=== PATIENT | female | born 1975 | race Caucasian/White ===

== ENCOUNTER 2016-12-04 11:51 | Observation (INO) | payer BC ==
[~2016-12-04] VITALS: Ht 157.5 cm; Wt 105.0 kg
[2016-12-04 11:52] VITALS: BP 181/116; PULSE 82; RESP 20; TEMP 98.5; O2SAT 98
[2016-12-04 12:23] LABS: AUTOMATED NEUTROPHIL # 4.6 TH/MM3 (1.8-7.7); BASOPHIL % 0.5 % (0.0-2.0); EOSINOPHIL # 0.1 TH/MM3 (0-0.4); EOSINOPHIL % 1.8 % (0.0-4.0); HEMO FLAGS DIFF FINAL; LYMPH % 32.3 % (9.0-44.0); LYMPHOCYTE # 2.4 TH/MM3 (1.0-4.8); MEAN CORPUSCULAR HEMOGLOBIN 28.1 PG (27.0-34.0); MEAN CORPUSCULAR HGB CONC 32.3 % (32.0-36.0); MONO % 4.9 % (0.0-8.0); NEUT % 60.5 % (16.0-70.0); PLATELET COUNT 316 TH/MM3 (150-450); RED BLOOD COUNT 4.71 MIL/MM3 (4.00-5.30); RED CELL DISTRIBUTION WIDTH 15.8 % (11.6-17.2); WHITE BLOOD COUNT 7.6 TH/MM3 (4.0-11.0)
[2016-12-04 12:32] LABS: PROTHROMBIN TIME - PATIENT 11.4 SEC (9.8-11.6)
[2016-12-04 12:37] LABS: ANION GAP 9 MEQ/L (5-15); BICARBONATE 25.3 MEQ/L (21.0-32.0); BLOOD UREA NITROGEN 10 MG/DL (7-18); CHLORIDE 103 MEQ/L (98-107); GLOMERULAR FILTRATION RATE 78 ML/MIN (>89); POTASSIUM 3.5 MEQ/L (3.5-5.1); SODIUM (NA) 137 MEQ/L (136-145)
[2016-12-04 12:47] LABS: CREATINE KINASE 80 U/L (26-192)
--- NOTE | 2016-12-04 12:52 | PD ---
HPI Chief Complaint: Chest Pain Time Seen by Provider: 12:49 Travel History International Travel<30 days: No Contact w/Intl Traveler<30days: No Traveled to known affect area: No History of Present Illness HPI 41-year-old female that presents to the ED for evaluation of chest pain. Per patient she's had this chest pain since yesterday night. Per patient she was watching TV when the pain started. Per patient he comes and goes. Sharp and calluses diaphoresis. She gets some shortness of breath with it. She states that she's had some pain in the chest before and they attributed this to her psoriasis arthritis. Per patient this feels different in that is more severe. She states that about a week ago she was diagnosed with bronchitis. She denies any cough currently. She states that she is taking antibiotics for this. She denies any injury to the chest. Per patient her pain is 6 out of 10. Comes and goes. Denies any fevers chills or sweats. No abdominal pain. She does state that she feels nauseated. She does have a strong family history of heart disease. She states that she does not smoke which she has a history of hypertension. She has had a stress test about 5-10 years ago. PFSH Past Medical History Autoimmune Disease: Yes (psoriasis on immunosuppresants) Hypertension: Yes ?: Not LMP: 12/03/16 Social History Alcohol Use: No Tobacco Use: No Substance Use: No Allergies-Medications (Allergen,Severity, Reaction): Coded Allergies: Penicillins (Verified Allergy, Unknown, 12/04/16) Reported Meds & Prescriptions Reported Meds & Active Scripts Active Reported Doxycycline 40 Mg Cap 40 Mg PO BID Duloxetine DR (Duloxetine HCl) 20 Mg Capdr 20 Mg PO BID Ambien (Zolpidem Tartrate) 10 Mg Tab 10 Mg PO HS PRN Prozac (Fluoxetine HCl) 20 Mg Cap 20 Mg PO DAILY Sulfazine (Sulfasalazine) 500 Mg Tab 500 Mg PO HS Gabapentin 600 Mg Tab 600 Mg PO HS Amlodipine (Amlodipine Besylate) 5 Mg Tab 5 Mg PO DAILY Review of Systems Except as stated in HPI: all other systems reviewed are Neg Physical Exam Narrative GENERAL: SKIN: Warm and dry. HEAD: Atraumatic. Normocephalic. EYES: Pupils equal and round. No scleral icterus. No injection or drainage. ENT: No nasal bleeding or discharge. Mucous membranes pink and moist. Tongue is midline. No uvula deviation. NECK: Trachea midline. No JVD. CARDIOVASCULAR: Regular rate and rhythm. No murmurs, S3, S4. Chest pain is not reproducible with touch. RESPIRATORY: No accessory muscle use. Clear to auscultation. Breath sounds equal bilaterally. GASTROINTESTINAL: Abdomen soft, non-tender, nondistended. Hepatic and splenic margins not palpable. MUSCULOSKELETAL: Extremities without clubbing, cyanosis, or edema. No obvious deformities. Full range of motion of the upper and lower extremities bilaterally. 2+ pulses bilaterally. NEUROLOGICAL: Awake and alert. No obvious cranial nerve deficits. Motor grossly within normal limits. Five out of 5 muscle strength in the arms and legs. Normal speech. PSYCHIATRIC: Appropriate mood and affect; insight and judgment normal. Data Data Last Documented VS Vital Signs Date Time Temp Pulse Resp B/P Pulse Ox O2 Delivery O2 Flow Rate FiO2 12/04/16 13:10 66 18 149/80 99 Room Air 12/04/16 11:52 98.5 Orders Electrocardiogram (12/04/16 11:56) Complete Blood Count With Diff (12/04/16 11:56) Basic Metabolic Panel (Bmp) (12/04/16 11:56) Ckmb (Isoenzyme) Profile (12/04/16 11:56) Troponin I (12/04/16 11:56) Chest, Single Ap (12/04/16 11:56) Iv Access Insert/Monitor (12/04/16 11:56) Ecg Monitoring (12/04/16 11:56) Oxygen Administration (12/04/16 11:56) Oximetry (12/04/16 11:56) Prothrombin Time / Inr (Pt) (12/04/16 11:56) Ed Urine Pregnancytest Poc (12/04/16 11:58) Lipase (12/04/16 12:34) Aspirin (Aspirin) (12/04/16 13:00) Labs Laboratory Tests Test 12/04/16 12:14 White Blood Count 7.6 TH/MM3 Red Blood Count 4.71 MIL/MM3 Hemoglobin 13.2 GM/DL Hematocrit 41.0 % Mean Corpuscular Volume 87.0 FL Mean Corpuscular Hemoglobin 28.1 PG Mean Corpuscular Hemoglobin 32.3 % Concent Red Cell Distribution Width 15.8 % Platelet Count 316 TH/MM3 Mean Platelet Volume 8.3 FL Neutrophils (%) (Auto) 60.5 % Lymphocytes (%) (Auto) 32.3 % Monocytes (%) (Auto) 4.9 % Eosinophils (%) (Auto) 1.8 % Basophils (%) (Auto) 0.5 % Neutrophils # (Auto) 4.6 TH/MM3 Lymphocytes # (Auto) 2.4 TH/MM3 Monocytes # (Auto) 0.4 TH/MM3 Eosinophils # (Auto) 0.1 TH/MM3 Basophils # (Auto) 0.0 TH/MM3 CBC Comment DIFF FINAL Differential Comment Prothrombin Time 11.4 SEC Prothromb Time International 1.0 RATIO Ratio Sodium Level 137 MEQ/L Potassium Level 3.5 MEQ/L Chloride Level 103 MEQ/L Carbon Dioxide Level 25.3 MEQ/L Anion Gap 9 MEQ/L Blood Urea Nitrogen 10 MG/DL Creatinine 0.81 MG/DL Estimat Glomerular Filtration 78 ML/MIN Rate Random Glucose 97 MG/DL Calcium Level 8.8 MG/DL Total Creatine Kinase 80 U/L Troponin I LESS THAN 0.02 NG/ML MDM Medical Decision Making Medical Screen Exam Complete: Yes Emergency Medical Condition: Yes Medical Record Reviewed: Yes Interpretation(s) CBC & BMP Diagram 12/04/16 12:14 troponin and CKMB negative EKG shows sinus rhythm with no sign of acute ischemia or arrhythmia examining attending. Last Impressions Chest X-Ray 12/04/16 1156 Signed Impressions: Service Date/Time: Sunday, December 04, 2016 12:35 - CONCLUSION: No acute disease. Elier Waters MD Differential Diagnosis Chest pain versus atypical chest pain versus ACS versus normal exam versus pneumonia versus pancreatitis Narrative Course 41-year-old female that presents to the ED for evaluation of chest pain. Patient was properly examined and was found to have signs and symptoms of unclear etiology. Definite concern for ACS is patient does have risk factors include family history hypertension. Labs and imaging were ordered. She was given aspirin here. Labs and imaging showed no sign of acute disease. Recommendation is for admission to chest pain center as patient does have risk factors include family history, hypertension. Patient agrees with this plan. Patient was admitted to the chest pain center by me. Procedures EKG Prior to Arrival: No Diagnosis Primary Impression: Chest pain in adult Admitting Information Admitting Physician Requests: Observation Dominic Jerry Dec 04, 2016 12:52
[2016-12-04] MEDS ORDERED: ASPIRIN 325 MG TAB PO ONE (13:00)
[2016-12-04 13:02] VITALS: RESP 18; O2SAT 99
[2016-12-04] MEDS ORDERED: AMBI10TA PO (13:09)
[2016-12-04] MEDS ORDERED: AMLO5TAB2 PO (13:09)
[2016-12-04] MEDS ORDERED: GABA600T PO (13:09)
[2016-12-04] MEDS ORDERED: DOXY1CAP74 PO (13:09)
[2016-12-04] MEDS ORDERED: SULF500T39 PO (13:09)
[2016-12-04] MEDS ORDERED: PROZ20CA11 PO (13:09)
[2016-12-04] MEDS ORDERED: DULO1CAP PO (13:09)
[2016-12-04 13:10] VITALS: BP 149/80; PULSE 66; RESP 18; O2SAT 99
--- NOTE | 2016-12-04 13:30 | RADRPT ---
EXAM DATE/TIME: 12/04/2016 12:35 [facility] COMPARISON: No previous studies available for comparison. INDICATIONS : Chest pain. MEDICAL HISTORY : Hypertension. SURGICAL HISTORY : Cholecystectomy. ENCOUNTER: Initial ACUITY: 1 day PAIN SCORE: 5/10 LOCATION: Left upper chest FINDINGS: A single view of the chest demonstrates the lungs to be symmetrically aerated without evidence of mas s, infiltrate or effusion. The cardiomediastinal contours are unremarkable. Osseous structures are intact. CONCLUSION: No acute disease. Elier Waetrs MD on December 04, 2016 at 13:28 Board Certified Radiologist. This report was verified electronically.
[2016-12-04] MEDS ORDERED: ACETAMINOPHEN 500 MG CPLT PO PRN (15:15)
[2016-12-04] MEDS ORDERED: ALPRAZolam 0.25 MG TAB PO PRN (15:15)
[2016-12-04] MEDS ORDERED: PANTOPRAZOLE SOD 40 MG DELAYED RELEASE TAB PO SCH (15:15)
[2016-12-04] MEDS ORDERED: SODIUM CHLORIDE 0.9% FLUSH 5 ML FLUSH IVF PRN (15:15)
[2016-12-04] MEDS ORDERED: ONDANSETRON HCL 4 MG/2 ML VIAL IV PRN (15:15)
[2016-12-04] MEDS ORDERED: ACETAMINOPHEN/HYDROcodone 325 MG/7.5 MG TAB PO PRN (15:15)
--- NOTE | 2016-12-04 15:32 | HHI.HP ---
[facility] Primary Care Physician Bianca Maravilla MD Chief Complaint Chest pain History of Present Illness This is a 41-year-old female that presents to ED via private vehicle with a complaint of left-sided chest discomfort that began about 8:00 last evening while watching television. He described as pressure. It was intermittent lasting no greater than 1 minute at a time. Occurred more than 10 times complain also shortness breath, nausea, diaphoresis. Patient also states that she is on doxycycline and has 4 more days of the medicine secondary to bilateral otitis media and bronchitis. She had a dry cough. She also had fever 6 days ago. Denies recent travel. Denies . Denies history of CAD but states her mother had a "mild heart attack at 41." Patient states she had a stress test 6 years ago and that was okay. Review of Systems General: Patient denies recent travel HEENT: Patient denies headache, sore throat, difficulty swallowing. Had bilateral ear aches. Cardiovascular: Has the chest discomfort as mentioned above. Denies sensation of heart beating rapidly or irregularly. No syncope. Complained of diaphoresis last evening. Respiratory: She has had intermittent shortness of breath. She has had a dry cough. Denies shortness of breath or inspirational chest discomfort. Denies wheezing or hemoptysis. GI: She was nauseous. Patient denies vomiting, diarrhea, abdominal pain, bloody stools. Musculoskeletal: Patient denies joint pain or edema. Denies calf pain or edema. Neurovascular: Patient denies numbness, tingling, weakness in extremities. Denies headache. Endocrine: Denies polyuria and polydipsia. Hematologic: Denies easy bruising. Skin: Denies rash or itching. Past Family Social History Allergies: Coded Allergies: Penicillins (Verified Allergy, Unknown, 12/04/16) Past Medical History Psoriatic arthritis and hypertension. Denies CAD, hyperlipidemia, and diabetes. Past Surgical History Cholecystectomy. Reported Medications Reported Meds & Active Scripts Active Reported Doxycycline 40 Mg Cap 40 Mg PO BID Duloxetine DR (Duloxetine HCl) 20 Mg Capdr 20 Mg PO BID Ambien (Zolpidem Tartrate) 10 Mg Tab 10 Mg PO HS PRN Prozac (Fluoxetine HCl) 20 Mg Cap 20 Mg PO DAILY Sulfazine (Sulfasalazine) 500 Mg Tab 500 Mg PO HS Gabapentin 600 Mg Tab 600 Mg PO HS Amlodipine (Amlodipine Besylate) 5 Mg Tab 5 Mg PO DAILY Active Ordered Medications Current Medications Medications (Trade) Dose Ordered Sig/Camelia Route Start Time Stop Time Status Last Admin (NS Flush) 2 ml UNSCH PRN IVF 12/04/16 15:15 (NS Flush) 2 ml BID IVF 12/04/16 21:00 (Tylenol) 500 mg Q4H PRN PO 12/04/16 15:15 (Farson 7.5-325 Mg) 1 tab Q4H PRN PO 12/04/16 15:15 (Zofran Inj) 4 mg Q6H PRN IV 12/04/16 15:15 (Protonix) 40 mg DAILY PO 12/04/16 15:15 12/04/16 15:12 (Aspirin) 325 mg DAILY PO 12/05/16 09:00 (Xanax) 0.25 mg Q8H PRN PO 12/04/16 15:15 Family History States that her mother had a "mild heart attack at 41." Social History Patient is a lifetime nonsmoker. Denies illicit drugs. Rarely has alcohol. Physical Exam Vital Signs Vital Signs Date Time Temp Pulse Resp B/P Pulse Ox O2 Delivery O2 Flow Rate FiO2 12/04/16 13:10 66 18 149/80 99 Room Air 12/04/16 13:02 60 18 97 Room Air 12/04/16 13:02 18 99 Room Air 12/04/16 13:02 98 Room Air 12/04/16 11:52 98.5 82 20 181/116 98 Room Air Physical Exam GENERAL: This is a well-nourished, well-developed patient, in no apparent distress. Patient speaks in clear complete sentences. Patient is pleasant. Patient was examined with a female reference services head at bedside. HEENT: Head is atraumatic and normocephalic. Neck is supple without lymphadenopathy and trachea is midline. No JVD or carotid bruits. CARDIOVASCULAR: Regular rate and rhythm without murmurs, gallops, or rubs. RESPIRATORY: Clear to auscultation. Breath sounds equal bilaterally. No wheezes , rales, or rhonchi. Chest wall is tender he would likely palpating with stethoscope. This is a similar discomfort that she has been having. No use of accessory muscles. GASTROINTESTINAL: Abdomen is nontender, nondistended. Abdomen soft. No obvious pulsatile mass or bruit. No CVA tenderness. Strong femoral pulses bilaterally. Normal bowel sounds in all quadrants. MUSCULOSKELETAL: Patient is moving upper and lower extremities freely. No calf tenderness or edema, no Homans sign. Strong pulses in upper and lower extremities. NEUROLOGICAL: Patient is alert and oriented. Cranial nerves 2-12 are grossly intact. No focal deficits and speech is clear. SKIN: No rash and turgor is normal. Laboratory Laboratory Tests Test 12/04/16 12:14 White Blood Count 7.6 Red Blood Count 4.71 Hemoglobin 13.2 Hematocrit 41.0 Mean Corpuscular Volume 87.0 Mean Corpuscular Hemoglobin 28.1 Mean Corpuscular Hemoglobin 32.3 Concent Red Cell Distribution Width 15.8 Platelet Count 316 Mean Platelet Volume 8.3 Neutrophils (%) (Auto) 60.5 Lymphocytes (%) (Auto) 32.3 Monocytes (%) (Auto) 4.9 Eosinophils (%) (Auto) 1.8 Basophils (%) (Auto) 0.5 Neutrophils # (Auto) 4.6 Lymphocytes # (Auto) 2.4 Monocytes # (Auto) 0.4 Eosinophils # (Auto) 0.1 Basophils # (Auto) 0.0 CBC Comment DIFF FINAL Differential Comment Prothrombin Time 11.4 Prothromb Time International 1.0 Ratio Sodium Level 137 Potassium Level 3.5 Chloride Level 103 Carbon Dioxide Level 25.3 Anion Gap 9 Blood Urea Nitrogen 10 Creatinine 0.81 Estimat Glomerular Filtration 78 Rate Random Glucose 97 Calcium Level 8.8 Total Creatine Kinase 80 Troponin I LESS THAN 0.02 Lipase 127 Result Diagram: 12/04/16 1214 12/04/16 1214 Imaging Last 48 hours Impressions Chest X-Ray 12/04/16 1156 Signed Impressions: Service Date/Time: Sunday, December 04, 2016 12:35 - CONCLUSION: No acute disease. Elier Waters MD Course Initial EKG has sinus rhythm without significant ST segment depressions or elevations. Assessment and Plan Assessment and Plan * Atypical chest pain: Patient will continue to have serial cardiac enzymes and EKGs for ruling out purposes. She will be seen by Dr. Zhu cardiology in the chest pain center and at that time further plan will be determined. Her symptoms appear to be musculoskeletal in nature. * Hypertension: Continue current medication. Patient is stable at this time. She is agreeable to this plan. Kevyn Ahn Dec 04, 2016 15:31
[2016-12-04 16:33] LABS: CREATINE KINASE 87 U/L (26-192)
--- NOTE | 2016-12-04 16:51 | EKG ---
Date Performed: 12/04/2016 Time Performed: 15:27:01 PTAGE: 41 years EKG: Sinus rhythm NORMAL ECG PREVIOUS TRACING : 12/04/2016 12.03 Since previous tracing, no significant change noted DOCTOR: Keena Zhu Interpretating Date/Time 12/04/2016 16:50:22
[2016-12-04] MEDS ORDERED: NAPR500T PO (17:01)
--- NOTE | 2016-12-04 17:01 | HHI.DCPOC ---
Discharge Care Plan Diagnosis: (1) Chest pain, atypical (2) Hypertension Goals to Promote Your Health * To prevent worsening of your condition and complications * To maintain your health at the optimal level Directions to Meet Your Goals Take your medications as prescribed Follow your dietary instruction Follow activity as directed Keep your appointments as scheduled Take your immunizations and boosters as scheduled If your symptoms worsen call your PCP, if no PCP go to Urgent Care Center or Emergency Room Smoking is Dangerous to Your Health. Avoid second hand smoke Call the 24-hour hour crisis hotline for domestic abuse at Kevyn Ahn Dec 04, 2016 17:01
[2016-12-04] MEDS ORDERED: KETOROLAC TROMETHAMINE 30 MG/ML (IVP) VIAL IVP ONE (17:45)
[2016-12-04 19:32] VITALS: BP 179/101; PULSE 73; RESP 20; TEMP 98.7; O2SAT 98
[2016-12-04] MEDS ORDERED: SODIUM CHLORIDE 0.9% FLUSH 5 ML FLUSH IVF SCH (21:00)
[2016-12-05] MEDS ORDERED: ASPIRIN 325 MG TAB PO SCH (09:00)
--- NOTE | 2016-12-05 15:58 | EKG ---
Date Performed: 12/04/2016 Time Performed: 12:03:59 PTAGE: 41 years EKG: Sinus rhythm NORMAL ECG NO PREVIOUS TRACING DOCTOR: Tay Underwood Interpretating Date/Time 12/05/2016 15:55:10
== END 2016-12-04 21:40 | disposition home or self-care (01) ==
LOC: NEPE 11:51 → NEDA 14:27 → NEPGCP 17:22
PROVIDERS: ADMIT Internal Medicine Interventional Cardiology; ATTEND Internal Medicine Interventional Cardiology
DX: R07.89 Other chest pain (principal); I10 Essential (primary) hypertension; J40 Bronchitis, not specified as acute or chronic; L84 Corns and callosities; L40.9 Psoriasis, unspecified; H66.93 Otitis media, unspecified, bilateral; M19.90 Unspecified osteoarthritis, unspecified site; Z82.49 Family history of ischemic heart disease and other diseases of the circulatory system
CPT/HCPCS: 71010; 80048; 82550; 83690; 84484; 84703; 85025; 85610; 93005; 96374; 96376; 99285; G0378; J1885; J2405

== ENCOUNTER 2018-04-18 14:58 | Observation (INO) ==
[2018-04-18] MEDS ORDERED: Acetaminophen 325 MG Tablet PO PRN (23:35)
--- NOTE | 2018-04-18 23:54 | P.HP ---
History of Present Illness Service: [facility] Primary Care Physician: Bianca Maravilla MD Chief Complaint: Sent by Luis DONNELLY for hypertensive urgency persistent headache History of Present Illness: 43-year-old white female with a history of hypertension history of psoriatic arthritis history of migraine-like headaches with a history of gallbladder surgery in the past presented to the emergency room in [facility] for evaluation of headaches that has been persistent for the last 2 weeks. Symptoms are intermittent. They occur in her bilateral druze region radiate to the front of her head. Described as sharp stabbing in nature associated with some visual disturbances. Patient believes it is related to a high blood pressure she has had no insurance is been able to take any medicines since about a month. She finally obtained [facility] insurance today unable to get a prescription for a medicine which she normally takes his amlodipine amlodipine 5 mg a day and went to the emergency room with the above complaints in the emergency room received Trandate morphine CT of the head was done which was unremarkable, patient also stated that she has had over the last 2 weeks some left-sided chest pain no shortness of breath no real radiation of this pain. Patient states this is the worst headaches she has had. Patient's vision has been blurry approximately 2 weeks time. Patient denies any history of heart disease congestive heart failure was on medication for her psoriatic arthritis in the past including prednisone and sulfa medication and Ambien on for sleep. We will add Vasotec IV restart amlodipine and use clonidine as necessary for her blood pressure I will go ahead and get an MRI of the brain in view of the persistence of the headache and the visual changes because of the chest pain will get serial enzymes and electrocardiogram. - Diagnosis (1) Hypertensive urgency (2) Persistent headaches (3) Chest pain Inpatient Certification: I certify that the inpatient services were ordered in accordance with Medicare regulations governing the order. This includes certification that hospital inpatient services are reasonable and necessary and in the case of services not specified as inpatient-only under 42 CFR 419.22(n), that they are appropriately provided as inpatient services in accordance to with the 2-midnight benchmark under 43 CFR 412.3(e) Review of Systems All other systems reviewed negative except as stated in HPI [facility] - History History Provided By: Patient - Medical History Medical History: Medical History (Last Reviewed 04/18/18 @ 23:50 by Micky Tomlinson MD) Arthritis (Acute) HTN (hypertension) (Acute) Asthma (Acute) - Surgical History Surgical History: Surgical History (Last Reviewed 04/18/18 @ 23:50 by Micky Tomlinson MD) History of cholecystectomy (Acute) - Tobacco History Second Hand Smoke Exposure: No Smoking Status: Never smoker - Alcohol History How Often Do You Have a Drink Containing Alcohol: Monthly or less - Substance Use History Substance History: No History of Abuse - Immunization History Tetanus Immunization: <5 Years Hx Influenza Vaccine This Season: No Medications and Allergies Active Medications: Active Medications Acetaminophen (Tylenol) 650 mg PO Q4H PRN PRN Reason: Temp > 100.4 Amlodipine Besylate (Norvasc) 5 mg PO DAILY BONNY Clonidine HCl (Catapres) 0.1 mg PO Q6H PRN PRN Reason: SBP>180, DBP>100, HR>65 Enalaprilat (Vasotec Inj) 1.25 mg IV.PUSH Q6H PRN PRN Reason: SBP>180, DBP>100, HR>65 Lactulose (Lactulose Liq) 30 ml PO DAILY PRN PRN Reason: SEVERE CONSITIPATION Ondansetron HCl (Zofran Inj) 4 mg IV.PUSH Q6H PRN PRN Reason: NAUSEA OR VOMITING Senna/Docusate Sodium (Gwen-Colace) 1 tab PO BID BONNY Sodium Chloride (Ns Flush) 2 ml IV.FLUSH BID BONNY Sodium Chloride (Ns Flush) 2 ml IV.FLUSH PRN PRN PRN Reason: FLUSH AFTER USING IV ACCESS Allergies Allergy/AdvReac Type Severity Reaction Status Date / Time Penicillins Allergy Severe Hives Verified 04/18/18 15:49 Home Medications Medication Instructions Recorded Confirmed Type amlodipine 5 mg PO DAILY 04/18/18 04/18/18 History gabapentin 600 mg PO HS 04/18/18 04/18/18 History loratadine [Claritin] 10 mg PO DAILY 04/18/18 04/18/18 History sulfasalazine 500 mg PO DAILY 04/18/18 04/18/18 History zolpidem [Ambien] 10 mg PO HS 04/18/18 04/18/18 History Exam Vital signs: Intake & Output 04/18/18 04/18/18 04/19/18 06:59 18:59 06:59 Weight 115.3 kg Other: Weight On Admission 112.8 kg Narrative: GENERAL: SKIN: Warm and dry. HEAD: Normocephalic. EYES: No scleral icterus. No injection or drainage. NECK: Supple, trachea midline. No JVD or lymphadenopathy. CARDIOVASCULAR: Regular rate and rhythm without murmurs, gallops, or rubs. RESPIRATORY: Breath sounds equal bilaterally. No accessory muscle use. GASTROINTESTINAL: Abdomen soft, non-tender, nondistended. MUSCULOSKELETAL: No cyanosis, or edema. BACK: Nontender without obvious deformity. No CVA tenderness. Caprini VTE Risk Assessment Caprini VTE Risk Assessment: Moderate/High Risk (score >= 2) Caprini Risk Assessment Model: Point Value = 1 Point Value = 2 Point Value = 3 Point Value = 5 Age 41-60 Minor surgery BMI > 25 kg/m2 Swollen legs Varicose veins or History of unexplained or recurrent spontaneous Oral contraceptives or hormone replacement Sepsis (< 1 month) Serious lung disease, including pneumonia (< 1 month) Abnormal pulmonary function Acute myocardial infarction Congestive heart failure (< 1 month) History of inflammatory bowel disease Medical patient at bed rest Age 61-74 Arthroscopic surgery Major open surgery (> 45 min) Laparoscopic surgery (> 45 min) Malignancy Confined to bed (> 72 hours) Immobilizing plaster cast Central venous access Age >= 75 History of VTE Family history of VTE Factor V Leiden Prothrombin [id number] Lupus anticoagulant Anticardiolipin antibodies Elevated serum homocysteine Heparin-induced thrombocytopenia Other congenital or acquired thrombophilia Stroke (< 1 month) Elective arthroplasty Hip, pelvis, or leg fracture Acute spinal cord injury (< 1 month) Prophylaxis Regimen: Total Risk Factor Score Risk Level Prophylaxis Regimen 0-1 Low Early ambulation 2 Moderate Order ONE of the following: *Sequential Compression Device (SCD) *Heparin 5000 units SQ BID 3-4 Higher Order ONE of the following medications: *Heparin 5000 units SQ TID *Enoxaparin/Lovenox 40 mg SQ daily (WT < 150 kg, CrCl > 30 mL/min) *Enoxaparin/Lovenox 30 mg SQ daily (WT < 150 kg, CrCl > 10-29 mL/min) *Enoxaparin/Lovenox 30 mg SQ BID (WT < 150 kg, CrCl > 30 mL/min) AND/OR *Sequential Compression Device (SCD) 5 or more Highest Order ONE of the following medications: *Heparin 5000 units SQ TID (Preferred with Epidurals) *Enoxaparin/Lovenox 40 mg SQ daily (WT < 150 kg, CrCl > 30 mL/min) *Enoxaparin/Lovenox 30 mg SQ daily (WT < 150 kg, CrCl > 10-29 mL/min) *Enoxaparin/Lovenox 30 mg SQ BID (WT < 150 kg, CrCl > 30 mL/min) AND *Sequential Compression Device (SCD) Assessment and Plan - Assessment (1) Hypertensive urgency Code(s): I16.0 - Hypertensive urgency Status: Acute Plan: will restart amlodipine 5mg and use prn clonidine and vasotec, (2) Persistent headaches Code(s): R51 - Headache Status: Acute Plan: may be related to hypertension but having visual changes will get MR brain CT negative of note patient has heavy irreg periods and had period earlier this month. (3) Chest pain Code(s): R07.9 - Chest pain, unspecified Status: Acute Plan: chest pain will get serial labs and ekg - Plan further plan as case develops Code Status: Full Discussed Condition With: Patient
[2018-04-19] MEDS: Zolpidem Tartrate 5 MG Tablet PO PRN (01:26)
[2018-04-19] MEDS: LORazepam 1 MG Tablet PO PRN ×2 (01:26→20:57)
[2018-04-19] MEDS ORDERED: amLODIPine 5 MG Tablet PO SCH (09:00)
[2018-04-19] MEDS ORDERED: Influenza (Quadrivalent) Vaccine 0.5 ML Syringe IM ONE (09:00)
[2018-04-19] MEDS: Senna/Docusate Sodium 8.6/50 MG Tablet PO SCH ×2 (09:09→20:57)
--- NOTE | 2018-04-19 11:28 | ECG ---
Date Performed: 04/19/2018 Time Performed: 07:42:35 PTAGE: 43 years EKG: Sinus rhythm POSSIBLE ANTERIOR MYOCARDIAL INFARCTION , PROBABLY OLD BORDERLINE ECG PREVIOUS TRACING : 12/04/2016 15.27 DOCTOR: Scotty Clay Interpretating Date/Time 04/19/2018 11:26:17
--- NOTE | 2018-04-19 12:11 | P.PNIM ---
Subjective Interval history: Pt reports that she still has slight headache this morning but feels that this correlated with when her BP starts elevating. She reports that she had been on Norvasc previously before she lost her insurance but even on the Norvasc her BP was still elevated typically into the 160-170's systolic at home. She had been on Lisinopril in the past but this induced cough and Losartan was reportedly not effective for her. She reports a hx of migraine headaches, psoriatic arthritis, untreated SHELBY and asthma as well. Physical Exam Vital signs: Last Vital Signs Temp 98.1 F 04/19/18 07:45 Pulse 82 04/19/18 07:45 Resp 18 04/19/18 07:45 BP 149/86 H 04/19/18 07:45 Pulse Ox 96 04/19/18 07:45 Narrative: General: NAD, AAOx3 Chest: CTA Cardiac: regular Abd: +BS, soft NS/NT Ext: Mild bilateral pedal edema Assessment and Plan Assessment (1) Hypertensive urgency: Code(s): I16.0 - Hypertensive urgency Status: Acute (2) Persistent headaches: Code(s): R51 - Headache Status: Acute (3) Chest pain: Code(s): R07.9 - Chest pain, unspecified Status: Acute Plan Hypertensive urgency - Pt is a 43 y/o female with hypertension, psoriatic arthritis, migraine headaches, and untreated SHELBY. - She presented to the ED in [place] on 04/18/18 for evaluation of headaches that has been persistent for the last 2 weeks. She had been out of her medication, Amlodipine, for about a month due to loss of her insurance but was able to sign up for CP the day prior to admission but unable to be seen for a refill of her BP meds - Her BP was as high as 245/156 in the ED - CT of the head was done which was unremarkable - Serial CE were negative. Pt denies any chest pain. - Pt was resumed on Norvasc and was given Vasotec and Clonidine PRN - Her BP remains elevated and she reports that even as an outpt her BP was not well controlled on the Norvasc. In the past sheh ad been tried on Lisinopril but this induced a cough and Losartan but she states that this did not control her pressure well either. - Change Norvasc to Procardia XL 30mg po BID, first dose now - Monitor BP the rest of the day today. Psoriatic arthritis - Cont. home meds SHELBY - She also reports that she has previously been diagnosed with SHELBY but has not ever used CPAP. She will need to establish with a [facility] PCP following discharge and will need to get set up for another sleep study as an outpt. Attending Attestation Patient examined. Assessment and plan formulated with Ruchi Hidalgo PA-C. I agree with the above. severe uncontrolled htn dc norvasc. start procardia 30mg bid pt headache associated with rise in bp. long hx migraines. reassess for dc home later today discussed establish and close f/u pcp after dc home she needs get cpap for shelby. she was noncompliant remigio sepulveda. Progress Note: Quality VTE Deep Vein Thrombosis/Pulmonary Embolism Present on Admission: No _ (1) Chest pain Qualifiers: Chest pain type: Ischemic chest pain type:
[2018-04-19] MEDS: Morphine Inj 4 MG/ML Vial IV.PUSH PRN ×2 (14:24→19:21)
[2018-04-20] MEDS: Zolpidem Tartrate 5 MG Tablet PO PRN (00:26)
[2018-04-20] MEDS: Morphine Inj 4 MG/ML Vial IV.PUSH PRN ×3 (02:42→15:00)
[2018-04-20] MEDS: Senna/Docusate Sodium 8.6/50 MG Tablet PO SCH (08:51)
--- NOTE | 2018-04-20 10:53 | P.PNIM ---
Subjective Interval history: pt had some posterior neck/head pain. worse with movements bp better. Physical Exam Vital signs: Last Vital Signs Temp 97.7 F 04/20/18 08:11 Pulse 88 04/20/18 08:11 Resp 18 04/20/18 08:11 BP 138/77 04/20/18 08:11 Pulse Ox 94 L 04/20/18 08:11 Narrative: nad heart reg lung cta abd s/nt ext trace pedal edema mild post.cervical neck paraspinous muscle spasms. Assessment and Plan Assessment (1) Hypertensive urgency: Code(s): I16.0 - Hypertensive urgency Status: Acute (2) Persistent headaches: Code(s): R51 - Headache Status: Acute (3) Chest pain: Code(s): R07.9 - Chest pain, unspecified Status: Acute Plan Hypertensive urgency - Pt is a 43 y/o female with hypertension, psoriatic arthritis, migraine headaches, and untreated SHELBY. - She presented to the ED in [place] on 04/18/18 for evaluation of headaches that has been persistent for the last 2 weeks. She had been out of her medication, Amlodipine, for about a month due to loss of her insurance but was able to sign up for CP the day prior to admission but unable to be seen for a refill of her BP meds - Her BP was as high as 245/156 in the ED - CT of the head was done which was unremarkable - Serial CE were negative. Pt denies any chest pain. - Pt was resumed on Norvasc and was given Vasotec and Clonidine PRN - Her BP remains elevated and she reports that even as an outpt her BP was not well controlled on the Norvasc. In the past she had been tried on Lisinopril but this induced a cough and Losartan but she states that this did not control her pressure well either. - Change Norvasc to Procardia XL 30mg po BID bp improved on procardia. will cont on dc with f/u needed. she has some post neck muscle spasms and h/a. trial antiinflammatory/muscle relaxer reevaluate for dc home later today. Psoriatic arthritis - Cont. home meds SHELBY - She also reports that she has previously been diagnosed with SHELBY but has not ever used CPAP. She will need to establish with a [facility] PCP following discharge and will need to get set up for another sleep study as an outpt. Progress Note: Quality VTE Deep Vein Thrombosis/Pulmonary Embolism Present on Admission: No _ (1) Chest pain Qualifiers: Chest pain type: Ischemic chest pain type:
[2018-04-20] MEDS ORDERED: MethylPREDNISolone Sod Succinate Inj 125 MG/2 ML Vial IV.PUSH ONE (12:00)
== END 2018-04-20 17:15 | disposition home or self-care (01) ==
LOC: NEDDLT 14:58 → N05 23:07 → INTOOBSV 23:07
PROVIDERS: ADMIT Hospitalist; ATTEND Hospitalist
CPT/HCPCS: 70450; 71010; 71045; 80053; 81001; 82550; 83520; 83690; 83880; 84484; 84703; 85025; 90471; 90658; 90686; 90774; 90775; 90784; 93005; 96374; 96375; 96376; 99285; C8952; G0008; G0378; J2270; J2765; J2930; J7040; Q0163; Q2038